=== PATIENT | female | born 1940 | race Caucasian/White ===

== ENCOUNTER → 2024-03-01 08:01 | Outpatient (REF) | payer MEDICARE, SELFPAY ==
[2024-03-01 09:14] LABS: % Basophils 1.5 % (0-2); % Eosinophils 1.8 % (0-6); % Lymphocytes 44.5 % (20.5-51.1); % Neutrophils 42.2 % (42.2-75.2); Absolute Basophils 0.1 10^3/uL (0-0.2); Absolute Eosinophils 0.1 10^3/uL (0-0.7); Absolute Lymphocytes 1.5 10^3/uL (1.2-3.4); Absolute Monocytes 0.3 10^3/uL (0.1-0.6); Absolute Neutrophils 1.4 10^3/uL (1.4-6.5); Hematocrit 40.2 % (37.0-47.0); Mean Corp Hgb Conc. 32.3 g/dL (33.0-37.0); Mean Corpuscular Hgb 31.3 pg (27.0-31.0); Mean Corpuscular Volume 96.6 fL (81.0-99.0); Mean Platelet Volume 9.7 fL (7.4-10.4); Nucleated Red Blood Cells % 0 %; Platelet Count 212 10^3/uL (130-400); Red Blood Cell Count 4.16 10^6/uL (4.20-5.40); Red Cell Dist. Width 12.8 % (11.5-14.5); White Blood Cell Count 3.3 10^3/uL (4.8-10.8)
[2024-03-01 09:52] LABS: ALT (SGPT) 14 U/L (0-35); AST (SGOT) 30 U/L (14-36); Albumin 4.7 g/dl (3.5-5.0); Alkaline Phosphatase 68 U/L (38-126); Blood Urea Nitrogen 14 mg/dl (7-17); Calcium 9.7 mg/dl (8.4-10.2); Carbon Dioxide 27 mmol/L (22-30); Chloride 103 mmol/L (98-107); Glucose 91 mg/dl (70-99); Potassium 5.4 mmol/L (3.5-5.1); Sodium 138 mmol/L (135-145); Total Bilirubin 0.6 mg/dl (0.2-1.3); Total Cholesterol 223 mg/dl (50-199); Total Protein 7.5 g/dl (6.3-8.2); Triglyceride 67 mg/dl (10-149); Very Low Density Lipoprotein 13 mg/dl (0-30); eGFR > 60.00
[2024-03-01 10:23] LABS: HDL Cholesterol 132 mg/dl; LDL Cholesterol, Calculated 78 mg/dl
== END ==
LOC: REG 08:01
PROVIDERS: ATTENDING PHYSICIAN Family Medicine
DX: E78.2 Mixed hyperlipidemia (principal); D72.819 Decreased white blood cell count, unspecified
CPT/HCPCS: 36415; 80053; 80061; 85025

== ENCOUNTER → 2024-07-16 10:09 | Outpatient (REF) | payer MEDICARE, SELFPAY | LOC: RAD 10:09 | PROVIDERS: ATTENDING PHYSICIAN Family Medicine | DX: M25.561 Pain in right knee (principal) | CPT/HCPCS: 73564; 73565 ==

== ENCOUNTER → 2024-08-05 13:01 | Outpatient (REF) | payer MEDICARE, SELFPAY | LOC: RAD 13:01 | PROVIDERS: ATTENDING PHYSICIAN Nurse Practitioner Adult Health; FAMILY PHYSICIAN Family Medicine | DX: M54.6 Pain in thoracic spine (principal); R07.81 Pleurodynia | CPT/HCPCS: 71111 ==

== ENCOUNTER → 2024-08-06 16:36 | Outpatient (REF) | payer MEDICARE, SELFPAY | LOC: RAD 16:36 | PROVIDERS: ATTENDING PHYSICIAN Family Medicine | DX: M79.89 Other specified soft tissue disorders (principal) | CPT/HCPCS: 93971 ==

== ENCOUNTER → 2024-08-13 09:35 | Outpatient (REF) | payer MEDICARE, SELFPAY | LOC: RAD 09:35 | PROVIDERS: ATTENDING PHYSICIAN Nurse Practitioner Adult Health | DX: M54.6 Pain in thoracic spine (principal) | CPT/HCPCS: 72072 ==

== ENCOUNTER → 2024-08-18 18:39 | Outpatient (REF) | payer MEDICARE, SELFPAY | LOC: PAVMRI 18:39 | PROVIDERS: ATTENDING PHYSICIAN Nurse Practitioner Adult Health; FAMILY PHYSICIAN Family Medicine | DX: M54.6 Pain in thoracic spine (principal); R07.81 Pleurodynia | CPT/HCPCS: 72146 ==

== ENCOUNTER 2024-08-27 13:08 | Emergency (ER) | payer MEDICARE, SELFPAY ==
[2024-08-27 13:14] VITALS: BP 158/87
[2024-08-27] MEDS: TORADOL 30 MG IM (14:15)
[2024-08-27] MEDS: TYLENOL 1000 MG PO (14:15)
[2024-08-27] MEDS: ROXICODONE 5 MG PO (14:50)
[2024-08-27] MEDS: LIDOCAINE 4% PATCH 1 PATCH TOPICAL (15:32)
[2024-08-27 15:34] VITALS: BP 134/76
--- NOTE | 2024-08-27 16:46 | ED.GENMED ---
History of Present Illness
General
Chief Complaint: Back Pain
Source: patient and family (Daughter)
Exam Limitations: none
Time Seen by Provider: 08/27/24 14:00
Nursing documentation reviewed up to this point in time: agreed with
History of Present Illness
History of Present Illness:
84-year-old female with past medical history of osteoporosis, hyperlipidemia who presents to the ER with her daughter for evaluation of back pain. Patient has mid to low back pain that has been ongoing for the past month or so secondary to
compression fracture which was diagnosed on MRI 2 weeks ago. Patient is scheduled to follow-up with orthopedics next week. She has been managing her pain with Tylenol but she feels that pain is poorly controlled especially when she is trying to
sit forward or when she is lying flat in bed at night and so she came to the emergency room for treatment. She denies any weakness or numbness in the legs. She denies any saddle anesthesia. She denies any bowel or bladder incontinence. She
denies any recent falls or trauma but she thinks she may have sustained the initial injury bending over to pick something up.
Review of Systems
Review of Systems
All Other Systems: ROS reviewed and negative except as documented in HPI and ROS
Constitutional: Denies fever
: Denies incontinence
Musculoskeletal: Reports back pain; Denies neck pain
Neurological: Denies weakness or numbness
Phy Exam
Physical Exam
Physical Exam:
General: Awake, alert, oriented x3; appears uncomfortable
Head: Normocephalic, atraumatic
Eyes: Conjunctiva normal
Throat: Airway intact
Neck: Trachea midline, no cervical spine tenderness
Back: She has midline tenderness lower thoracic region
Lungs: Breathing comfortably no distress
Heart: Regular rate
Abd: Soft, non distended, nontender
Neuro: Cranial nerves grossly intact, motor and sensory function intact, ambulatory in the emergency room with no ataxia
Extremities: Warm and well-perfused
Scores
Heart Failure Risk
Heart Failure Risk Score: Not Applicable
Heart Score for Chest Pain Patients
STEMI patient?: Not applicable
Withdrawal Assessment of Alcohol
Withdrawal Assessment Completed?: Not applicable
Course
Orders/Labs/Results
Orders:
Orders
08/27/24 14:06
Acetaminophen [Tylenol] 1,000 mg PO NOW STA
Ketorolac [Toradol] 30 mg IM NOW STA
08/27/24 14:45
Oxycodone [Roxicodone] 5 mg PO NOW STA
08/27/24 15:15
Lidocaine [Lidocaine 4% Patch] 1 patch TOPICAL ONCE ONE
Apply Lidocaine patch(s) to:: back
Vital Signs
Initial and Last Documented VS:
Initial Vital Signs
Temp Pulse Resp BP Pulse Ox
36.6 C 71 18 158/87 99
08/27/24 13:14 08/27/24 13:14 08/27/24 13:14 08/27/24 13:14 08/27/24 13:14
Last Documented Vital Signs
Temp Pulse Resp BP Pulse Ox
36.6 C 72 20 134/76 99
08/27/24 13:14 08/27/24 15:34 08/27/24 15:34 08/27/24 15:34 08/27/24 15:34
MDM/Problems Addressed
Differential Diagnosis Includes:
Vertebral compression fracture
MDM/Problems Addressed:
84-year-old female presents with uncontrolled pain from vertebral compression fracture that she has been dealing with for the past few weeks. Has been trying to manage with Tylenol but this is not adequate and she is having trouble sleeping. She
has no red flag symptoms. Reviewed MRI from 08/13/24:
IMPRESSION: Old compression deformity of L1.
Compression deformity of the T9 vertebral body, with marrow signal abnormality compatible with acute to subacute timeframe. If there are persistent clinical symptoms, consideration for consultation for vertebroplasty.
No significant compression of the thoracic spinal cord.
Normal signal intensity of the cervical and thoracic spinal cord.
See above narrative for description of degenerative changes. There is also a multi curvature scoliosis.
Tenderness on exam today does correlate with findings on MRI. No indication for repeat imaging at this point in time, this is mostly a pain control issue. Will treat symptomatically and reassess.
Patient treated here with multimodal pain control and pain significantly improved. Patient often walking around the ER. Will prescribe pain control regimen; we will give a short course of opiates, will also prescribe bowel regimen to prevent
constipation. She has planned follow-up with orthopedics and I advised her that if she needs long-term pain control she can follow[facility]. She feels comfortable with this plan. All questions answered.
*Radiology
Radiology exam reviewed: radiology read reviewed (Reviewed report from prior MRI)
*Pulse Oximetry
Patient hypoxic: no
*Critical Care Note
Total Time (30-74mins, 75-104mins- exclusive of procedures): Not Applicable
Data Reviewed
Source: patient
ED Attending Note
-
Portions of this chart may have been created with voice recognition software.� Occasional wrong word or��sound alike� substitutions may have occurred due to the inherent limitations of voice recognition software.
Discharge Plan
Departure
Patient Disposition: Home (Routine Discharge)
Date of Disposition: 08/27/24
Time of Disposition: 15:21
Patient with high blood pressure during this ER visit?: Yes
Discharge Problem:
Back pain, Vertebral compression fracture
Instructions: Vertebral Compression Fracture ED
Prescriptions:
New
oxycodone 5 mg tablet
5 mg PO Q8H PRN (Reason: Pain) Qty: 15 0RF
ibuprofen 600 mg tablet
600 mg PO Q6H PRN (Reason: Pain) Qty: 30 0RF
lidocaine 5 % adhesive patch,medicated
1 patch topical Q12H Qty: 30 0RF
docusate sodium [Colace] 100 mg capsule
100 mg PO DAILY Qty: 30 0RF
polyethylene glycol 3350 [Miralax] 17 gram/dose powder
4 g PO DAILY Qty: 119 0RF
Referrals:
Job Prakash MD [Active] - As needed (As needed for further evaluation and treatment of your back pain)
Estephanie Nova MD [Family Provider] - Call in 1-3 days for appt
Activity Restrictions/Additional Instructions:
You were seen in the emergency room for back pain and you were given pain medication to help control your symptoms. Your symptoms are related to a compression fracture in your back. You should follow-up with the orthopedist as scheduled and if you
need further assessment or treatment for your compression fracture you can also call and schedule an appointment with Dr. Prakash.
You can take the following medications for your pain to help control your symptoms:
-Acetaminophen (Tylenol) 1,000 mg (2 extra strength tablets) every 6 hours as needed
-Ibuprofen (Motrin/Aleve) 600 mg (3 regular strength tablets) every 6 hours as needed
-Lidocaine 5% patches apply topically every 12 hours as needed
-Oxycodone 5 mg (1 tab) every 8 hours as needed; for very severe pain, you can take 10 mg (2 tabs)
Thank you for visiting the Emergency Department at [facility].
1. Please schedule a follow up appointment as directed. Call first thing tomorrow morning to make an appointment.
2. If indicated, please take your medications as instructed and indicated on discharge paperwork.
3. If any of your symptoms do not improve, or persist, or become more severe within 6-12 hours, please return to the emergency department for further care.
4. Please return to the emergency department if you develop a headache, neck pain/stiffness, fever greater than 100.4F, chest pain, shortness of breath, persistent nausea, vomiting, slurred speech, difficulty walking, numbness/tingling, weakness,
signs of infection or any other symptoms that are worrisome to you.
Please call [phone] if you have any questions.
Interventions
Interventions:
*Risk Screen - Suicide Last Done: 08/27/24 13:14
*General Assessment Last Done: 08/27/24 13:14
*Neglect/Abuse Screening Last Done: 08/27/24 13:14
*Nursing Disposition Last Done: 08/27/24 16:04
ED-Musculoskeletal Assessment Last Done: 08/27/24 16:04
Discharge Date and Time
Discharge Date/Time: 08/27/24 16:06
Print Language: UKRAINIAN
== END 2024-08-27 16:06 | disposition home or self-care (01) ==
LOC: EMR 13:08
PROVIDERS: EMERGENCY PHYSICIAN Emergency Medicine; FAMILY PHYSICIAN Family Medicine
DX: M48.54XA Collapsed vertebra, not elsewhere classified, thoracic region, initial encounter for fracture (principal); E78.5 Hyperlipidemia, unspecified
CPT/HCPCS: 96372; 99284

== ENCOUNTER → 2024-09-22 08:09 | Outpatient (REF) | payer MEDICARE, SELFPAY ==
[2024-09-22 10:03] LABS: % Basophils 1.4 % (0-2); % Immature Granulocytes 0.3 % (0-0.5); % Lymphocytes 35.2 % (20.5-51.1); % Monocytes 10.6 % (1.7-9.3); % Neutrophils 50.5 % (42.2-75.2); Absolute Basophils 0.1 10^3/uL (0-0.2); Absolute Eosinophils 0.1 10^3/uL (0-0.7); Absolute Lymphocytes 1.3 10^3/uL (1.2-3.4); Absolute Monocytes 0.4 10^3/uL (0.1-0.6); Absolute Neutrophils 1.8 10^3/uL (1.4-6.5); Hematocrit 38.6 % (37.0-47.0); Hemoglobin 12.9 g/dL (12.0-16.0); Mean Corp Hgb Conc. 33.4 g/dL (33.0-37.0); Mean Corpuscular Hgb 31.5 pg (27.0-31.0); Mean Corpuscular Volume 94.1 fL (81.0-99.0); Mean Platelet Volume 9.9 fL (7.4-10.4); Nucleated Red Blood Cells % 0 %; Platelet Count 278 10^3/uL (130-400); Red Cell Dist. Width 12.3 % (11.5-14.5); White Blood Cell Count 3.6 10^3/uL (4.8-10.8)
[2024-09-22 10:44] LABS: ALT (SGPT) 14 U/L (0-35); AST (SGOT) 28 U/L (14-36); Albumin 4.9 g/dl (3.5-5.0); Alkaline Phosphatase 132 U/L (38-126); Blood Urea Nitrogen 21 mg/dl (7-17); Calcium 10.6 mg/dl (8.4-10.2); Carbon Dioxide 26 mmol/L (22-30); Chloride 103 mmol/L (98-107); Glucose 82 mg/dl (70-99); HDL Cholesterol 104 mg/dl; LDL Cholesterol, Calculated 97 mg/dl; Potassium 4.8 mmol/L (3.5-5.1); Sodium 142 mmol/L (135-145); Total Bilirubin 0.7 mg/dl (0.2-1.3); Total Cholesterol 218 mg/dl (50-199); Total Protein 7.9 g/dl (6.3-8.2); Triglyceride 86 mg/dl (10-149); Very Low Density Lipoprotein 17 mg/dl (0-30); eGFR > 60.00
[2024-09-22 11:02] LABS: Vitamin D, 25-OH*** 55.4 ng/mL (30-80)
== END ==
LOC: REG 08:09
PROVIDERS: ATTENDING PHYSICIAN Internal Medicine; FAMILY PHYSICIAN Family Medicine
DX: D72.819 Decreased white blood cell count, unspecified (principal); E78.2 Mixed hyperlipidemia; M81.0 Age-related osteoporosis without current pathological fracture
CPT/HCPCS: 36415; 80053; 80061; 82306; 85025

== ENCOUNTER 2024-10-04 15:15 | Emergency (ER) | payer MEDICARE, SELFPAY ==
[2024-10-04 15:22] VITALS: BP 149/100
--- NOTE | 2024-10-04 15:24 | ED.GENMED ---
ED Provider Triage
<Lily Ellis, [employer] - Last Filed: 10/04/24 15:29>
-
Patient seen by provider in Triage?: Seen in Triage
Attestation: A medical screening examination has been initiated by a qualified medical provider. Based on the assessment performed at this time, it has been determined that an emergent medical condition may exist and the patient has been informed
that further medical evaluation and possible additional diagnostic testing may be needed.
HPI: 84-year-old female diagnosed earlier this month with fractured vertebrae, has been on oxycodone resulting in constipation, no BM in 2 weeks. Was taking Colace with no relief. Took Dulcolax 3 nights this past weel, took Mag Citrate 10 oz @ 12
noon with no results. Abdomen 'uncomfortable but not really pain.' Denies n/v.
No hx abdominal surgery.
GENERAL: Alert , in no apparent distress
EYE: No visual abnormalities.
ENT: No visible abnormalities.
LUNGS: No acute respiratory distress
NEUROLOGICAL: Alert and oriented
SKIN: Skin intact. No visible changes.
MUSCULOSKELETAL: Moving extremities normally
PSYCH: Normal and appropriate interaction.
This is a medical evaluation conducted in person to initiate diagnostic evaluation and provide initial therapeutics. Please see further documentation by the treating clinician.
History of Present Illness
<Lily Ellis, [employer] - Last Filed: 10/04/24 15:29>
General
Chief Complaint: Abdominal Symptoms
Time Seen by Provider: 10/04/24 16:34
<Naman Merrill, DO - Last Filed: 10/04/24 23:29>
General
Source: patient and spouse
Exam Limitations: none
Nursing documentation reviewed up to this point in time: agreed with
History of Present Illness
History of Present Illness:
84-year-old female presents emergency room complaining of constipation ongoing for the past 2 weeks. She was diagnosed with febrile fracture 2 weeks ago. She denies any abdominal pain. She has been taking oxycodone for the past 2 weeks. She took
mag citrate earlier today with no results.
Past History
<Naman Merrill, DO - Last Filed: 10/04/24 23:29>
Past History
ED Past Medical History: Other (Back pain)
ED Past Surgical History: Appendectomy
Social History
Tobacco: Non-smoker
Alcohol: None
Drug: None
Personal:
Living: with family
Review of Systems
<Naman Merrill, DO - Last Filed: 10/04/24 23:29>
Review of Systems
Allergies reviewed?: Yes
All Other Systems: Not applicable
Constitutional: Reports no symptoms
EENT: Reports no symptoms
Respiratory: Reports no symptoms
Cardiac: Reports no symptoms
ABD/GI: Reports constipated; Denies abdominal pain
: Reports no symptoms
Musculoskeletal: Reports no symptoms
Skin: Reports no symptoms
Neurological: Reports no symptoms
Endocrine: Reports no symptoms
Hematologic/Lymphatic: Reports no symptoms
Psychiatric: Reports no symptoms
Phy Exam
<Naman Merrill, DO - Last Filed: 10/04/24 23:29>
Physical Exam
Physical Exam:
Physical Exam
General: no apparent distress, not acutely ill
Neck: supple. no meningeal signs. normal posterior pharynx
Heart: s1/s2 regular rate and rhythm, no murmur. equal radial
pulses.
HEENT: Pupils equal round reactive to light, EOMI
Lungs: no acute respiratory distress. clear bilaterally
Abdomen: normal bowel sounds. not tender. no CVAT, rectal exam guaiac negative brown stool, no fecal impaction
Neuro: alert and oriented. no focal neurological deficits cranial nerves II through XII intact
Skin: no rash
Psychiatric: well kept. interactive and cooperative
Extremities: no edema. no calf tenderness. negative homans. good distal pulses
Course
<Lily Sheets Day, [employer]EC[employer]IVE - Last Filed: 10/04/24 15:29>
Orders/Labs/Results
Orders:
Orders
10/04/24 15:29
CR Obstruct Series W/pa Chest Urgent
Comment:
Reason For Exam: no BM 2 weeks
10/04/24 15:34
Complete Blood Count/With Diff Urgent
Comprehensive Metabolic Panel Urgent
Abnormal Lab Results
10/04/24
15:34
RBC 4.03 L 10^6/uL
(4.20-5.40)
MCHC 32.7 L g/dL
(33.0-37.0)
Absolute Lymphs (auto) 0.9 L 10^3/uL
(1.2-3.4)
Lymphocytes % 19.1 L %
(20.5-51.1)
Chloride 97 L mmol/L
(98-107)
BUN 19 H mg/dl
(7-17)
Glucose 115 H mg/dl
(70-99)
Calcium 10.6 H mg/dl
(8.4-10.2)
10/04/24 15:34
10/04/24 15:34
Vital Signs
Initial and Last Documented VS:
Initial Vital Signs
Temp Pulse Resp BP Pulse Ox
98.3 F 98 16 149/100 99
10/04/24 15:22 10/04/24 15:22 10/04/24 15:22 10/04/24 15:22 10/04/24 15:22
Last Documented Vital Signs
Temp Pulse Resp BP Pulse Ox
98.3 F 92 16 130/76 96
10/04/24 15:22 10/04/24 17:11 10/04/24 17:11 10/04/24 17:11 10/04/24 17:11
<Naman Merrill, DO - Last Filed: 10/04/24 23:29>
Orders/Labs/Results
Orders:
Orders
10/04/24 15:29
CR Obstruct Series W/pa Chest Urgent
Comment:
Reason For Exam: no BM 2 weeks
10/04/24 15:34
Complete Blood Count/With Diff Urgent
Comprehensive Metabolic Panel Urgent
Abnormal Lab Results
10/04/24
15:34
RBC 4.03 L 10^6/uL
(4.20-5.40)
MCHC 32.7 L g/dL
(33.0-37.0)
Absolute Lymphs (auto) 0.9 L 10^3/uL
(1.2-3.4)
Lymphocytes % 19.1 L %
(20.5-51.1)
Chloride 97 L mmol/L
(98-107)
BUN 19 H mg/dl
(7-17)
Glucose 115 H mg/dl
(70-99)
Calcium 10.6 H mg/dl
(8.4-10.2)
10/04/24 15:34
10/04/24 15:34
Vital Signs
Initial and Last Documented VS:
Initial Vital Signs
Temp Pulse Resp BP Pulse Ox
98.3 F 98 16 149/100 99
10/04/24 15:22 10/04/24 15:22 10/04/24 15:22 10/04/24 15:22 10/04/24 15:22
Last Documented Vital Signs
Temp Pulse Resp BP Pulse Ox
98.3 F 92 16 130/76 96
10/04/24 15:22 10/04/24 17:11 10/04/24 17:11 10/04/24 17:11 10/04/24 17:11
<Naman Merrill, DO - Last Filed: 10/04/24 23:29>
MDM/Problems Addressed
Differential Diagnosis Includes:
Bowel obstruction, fecal impaction
MDM/Problems Addressed:
84-year-old female with const, stemming from oxycodone. No obstruction seen. Will treat with lactulose. Follow-up primary care.
<Naman Merrill, - Last Filed: 10/04/24 23:29>
*Radiology
Radiology exam reviewed: radiology read reviewed (Abdominal x-ray shows constipation, no bowel)
*Pulse Oximetry
Patient hypoxic: no
*Critical Care Note
Total Time (30-74mins, 75-104mins- exclusive of procedures): Not Applicable
Data Reviewed
Further Testing Considered But Not Given:
CT scan not indicated
<Naman Merrill, - Last Filed: 10/04/24 23:29>
Patient Management
Social determinants of health affecting care: Living situation and Strong social support
Escalation/DeEscalation of care consider admission/obs:
Admit not indicated
ED Attending Note
<Lily Ellis [employer] EXECUTIVE - Last Filed: 10/04/24 15:29>
-
Portions of this chart may have been created with voice recognition software.� Occasional wrong word or��sound alike� substitutions may have occurred due to the inherent limitations of voice recognition software.
Discharge Plan
Departure
Patient Disposition: Home (Routine Discharge)
Date of Disposition: 10/04/24
Time of Disposition: 16:52
Patient with high blood pressure during this ER visit?: Yes
Condition: Good
Discharge Problem:
Acute constipation
Instructions: Constipation, Adult (DC), BLOOD PRESSURE
Prescriptions:
New
lactulose 20 gram packet
20 g PO BID Qty: 30 0RF
No Action
oxycodone 5 mg tablet
5 mg PO Q8H PRN (Reason: Pain) Qty: 15 0RF
ibuprofen 600 mg tablet
600 mg PO Q6H PRN (Reason: Pain) Qty: 30 0RF
lidocaine 5 % adhesive patch,medicated
1 patch topical Q12H Qty: 30 0RF
docusate sodium [Colace] 100 mg capsule
100 mg PO DAILY Qty: 30 0RF
polyethylene glycol 3350 [Miralax] 17 gram/dose powder
4 g PO DAILY Qty: 119 0RF
Activity Restrictions/Additional Instructions:
Follow-up with primary care in 3 to 5 days. Return for any concerns.
Interventions
Interventions:
*Risk Screen - Suicide Last Done: 10/04/24 15:22
*General Assessment Last Done: 10/04/24 17:11
*Neglect/Abuse Screening Last Done: 10/04/24 15:22
ED- Fall Risk Assessment Last Done: 10/04/24 17:11
*ED COVID-19 Vaccine History Last Done: 10/04/24 15:24
*Nursing Disposition Last Done: 10/04/24 17:18
DF-[id number] Assessment Last Done: 10/04/24 17:11
Discharge Date and Time
Discharge Date/Time: 10/04/24 17:20
Print Language: LAO
[2024-10-04 15:44] LABS: % Basophils 0.6 % (0-2); % Eosinophils 0.2 % (0-6); % Lymphocytes 19.1 % (20.5-51.1); % Monocytes 7.4 % (1.7-9.3); % Neutrophils 72.7 % (42.2-75.2); Absolute Lymphocytes 0.9 10^3/uL (1.2-3.4); Absolute Monocytes 0.4 10^3/uL (0.1-0.6); Absolute Neutrophils 3.5 10^3/uL (1.4-6.5); Hematocrit 38.2 % (37.0-47.0); Hemoglobin 12.5 g/dL (12.0-16.0); Mean Corp Hgb Conc. 32.7 g/dL (33.0-37.0); Mean Corpuscular Volume 94.8 fL (81.0-99.0); Mean Platelet Volume 8.8 fL (7.4-10.4); Nucleated Red Blood Cells % 0 %; Platelet Count 305 10^3/uL (130-400); Red Blood Cell Count 4.03 10^6/uL (4.20-5.40); Red Cell Dist. Width 12.2 % (11.5-14.5); White Blood Cell Count 4.8 10^3/uL (4.8-10.8)
[2024-10-04 15:59] LABS: ALT (SGPT) 13 U/L (0-35); AST (SGOT) 25 U/L (14-36); Albumin 4.9 g/dl (3.5-5.0); Alkaline Phosphatase 125 U/L (38-126); Blood Urea Nitrogen 19 mg/dl (7-17); Calcium 10.6 mg/dl (8.4-10.2); Carbon Dioxide 26 mmol/L (22-30); Chloride 97 mmol/L (98-107); Glucose 115 mg/dl (70-99); Potassium 4.9 mmol/L (3.5-5.1); Sodium 138 mmol/L (135-145); Total Bilirubin 0.5 mg/dl (0.2-1.3); Total Protein 7.9 g/dl (6.3-8.2); eGFR > 60.00
--- NOTE | 2024-10-04 16:43 | EDRN ---
Dr. Merrill in room w/pt at this time.
--- NOTE | 2024-10-04 17:04 | EDRN ---
Dr. Merrill in room w/ pt at this time.
[2024-10-04 17:11] VITALS: BP 130/76; BMI 21.7
== END 2024-10-04 17:20 | disposition home or self-care (01) ==
LOC: EMR 15:15
PROVIDERS: Registered Nurse; EMERGENCY PHYSICIAN Emergency Medicine
DX: K59.09 Other constipation (principal); R03.0 Elevated blood-pressure reading, without diagnosis of hypertension
CPT/HCPCS: 99284; 74022; 80053; 85025

== ENCOUNTER → 2024-10-22 08:45 | Outpatient (REF) | payer MEDICARE, SELFPAY ==
[2024-10-22 10:48] LABS: ALT (SGPT) 13 U/L (0-35); AST (SGOT) 24 U/L (14-36); Albumin 4.4 g/dl (3.5-5.0); Alkaline Phosphatase 135 U/L (38-126); Direct Bilirubin 0.2 mg/dl (0.0-0.4); Total Bilirubin 0.7 mg/dl (0.2-1.3); Total Protein 7.1 g/dl (6.3-8.2)
[2024-10-23 08:59] LABS: Intact PTH 39.3 pg/ml (13.6-85.8)
== END ==
LOC: REG 08:45
PROVIDERS: ATTENDING PHYSICIAN Family Medicine
DX: R74.8 Abnormal levels of other serum enzymes (principal)
CPT/HCPCS: 36415; 80076; 83970

== ENCOUNTER → 2024-10-26 18:16 | Outpatient (REF) | payer MEDICARE, SELFPAY | LOC: WDC 18:16 | PROVIDERS: ATTENDING PHYSICIAN Family Medicine | DX: Z12.31 Encounter for screening mammogram for malignant neoplasm of breast (principal) | CPT/HCPCS: 77063; 77067 ==

== ENCOUNTER → 2025-01-12 10:16 | Outpatient (REF) | payer MEDICARE, OTHER, SELFPAY | LOC: RAD 10:16 | PROVIDERS: ATTENDING PHYSICIAN Internal Medicine; FAMILY PHYSICIAN Family Medicine | DX: Z13.820 Encounter for screening for osteoporosis (principal); M81.0 Age-related osteoporosis without current pathological fracture | CPT/HCPCS: 77080; 77081 ==

== ENCOUNTER → 2025-01-29 08:46 | Outpatient (REF) | payer MEDICARE, OTHER, SELFPAY ==
[2025-01-29 09:48] LABS: % Basophils 1.3 % (0-2); % Eosinophils 1.6 % (0-6); % Immature Granulocytes 0.3 % (0-0.5); % Lymphocytes 42.6 % (20.5-51.1); % Monocytes 10.6 % (1.7-9.3); % Neutrophils 43.6 % (42.2-75.2); Absolute Eosinophils 0.1 10^3/uL (0-0.7); Absolute Lymphocytes 1.3 10^3/uL (1.2-3.4); Absolute Monocytes 0.3 10^3/uL (0.1-0.6); Absolute Neutrophils 1.4 10^3/uL (1.4-6.5); Hematocrit 38.8 % (37.0-47.0); Hemoglobin 12.3 g/dL (12.0-16.0); Mean Corp Hgb Conc. 31.7 g/dL (33.0-37.0); Mean Corpuscular Hgb 30.6 pg (27.0-31.0); Mean Corpuscular Volume 96.5 fL (81.0-99.0); Mean Platelet Volume 9.5 fL (7.4-10.4); Nucleated Red Blood Cells % 0 %; Platelet Count 216 10^3/uL (130-400); Red Blood Cell Count 4.02 10^6/uL (4.20-5.40); White Blood Cell Count 3.1 10^3/uL (4.8-10.8)
[2025-01-29 10:31] LABS: ALT (SGPT) 13 U/L (0-35); AST (SGOT) 27 U/L (14-36); Albumin 4.6 g/dl (3.5-5.0); Alkaline Phosphatase 114 U/L (38-126); Blood Urea Nitrogen 16 mg/dl (7-17); Calcium 9.6 mg/dl (8.4-10.2); Carbon Dioxide 26 mmol/L (22-30); Chloride 101 mmol/L (98-107); Glucose 88 mg/dl (70-99); HDL Cholesterol 108 mg/dl; LDL Cholesterol, Calculated 69 mg/dl; Potassium 4.8 mmol/L (3.5-5.1); Sodium 137 mmol/L (135-145); Total Bilirubin 0.8 mg/dl (0.2-1.3); Total Cholesterol 191 mg/dl (50-199); Total Protein 7.2 g/dl (6.3-8.2); Triglyceride 70 mg/dl (10-149); Very Low Density Lipoprotein 14 mg/dl (0-30); eGFR > 60.00
== END ==
LOC: REG 08:46
PROVIDERS: ATTENDING PHYSICIAN Family Medicine
DX: E78.2 Mixed hyperlipidemia (principal); D72.819 Decreased white blood cell count, unspecified
CPT/HCPCS: 36415; 80053; 80061; 85025

== ENCOUNTER → 2025-06-03 10:20 | Outpatient (REF) | payer MEDICARE, OTHER, SELFPAY ==
[2025-06-03 11:54] LABS: ALT (SGPT) 15 U/L (0-35); AST (SGOT) 27 U/L (14-36); Albumin 4.8 g/dl (3.5-5.0); Alkaline Phosphatase 123 U/L (38-126); Blood Urea Nitrogen 13 mg/dl (7-17); Calcium 8.9 mg/dl (8.4-10.2); Carbon Dioxide 27 mmol/L (22-30); Chloride 104 mmol/L (98-107); Glucose 87 mg/dl (70-99); Potassium 4.9 mmol/L (3.5-5.1); Sodium 139 mmol/L (135-145); Total Protein 7.7 g/dl (6.3-8.2); eGFR > 60.00
[2025-06-03 12:09] LABS: Vitamin D, 25-OH*** 59.1 ng/mL (30-80)
== END ==
LOC: REG 10:20
PROVIDERS: ATTENDING PHYSICIAN Internal Medicine; FAMILY PHYSICIAN Family Medicine
DX: M79.669 Pain in unspecified lower leg (principal); M81.0 Age-related osteoporosis without current pathological fracture
CPT/HCPCS: 36415; 73552; 80053; 82306

== ENCOUNTER → 2025-09-27 07:44 | Outpatient (REF) | payer MEDICARE, OTHER, SELFPAY ==
[2025-09-27 08:43] LABS: Hematocrit 39.6 % (37.0-47.0); Hemoglobin 12.7 g/dL (12.0-16.0); Mean Corp Hgb Conc. 32.1 g/dL (33.0-37.0); Mean Corpuscular Volume 93.4 fL (81.0-99.0); Nucleated Red Blood Cells % 0 %; Platelet Count 208 10^3/uL (130-400); Red Cell Dist. Width 12.8 % (11.5-14.5)
[2025-09-27 09:23] LABS: ALT (SGPT) 15 U/L (0-35); AST (SGOT) 27 U/L (14-36); Albumin 4.6 g/dl (3.5-5.0); Alkaline Phosphatase 113 U/L (38-126); Blood Urea Nitrogen 13 mg/dl (7-17); Calcium 9.2 mg/dl (8.4-10.2); Carbon Dioxide 29 mmol/L (22-30); Chloride 102 mmol/L (98-107); Glucose 89 mg/dl (70-99); HDL Cholesterol 98 mg/dl; LDL Cholesterol, Calculated 93 mg/dl; Potassium 4.6 mmol/L (3.5-5.1); Sodium 135 mmol/L (135-145); Total Protein 6.9 g/dl (6.3-8.2); Very Low Density Lipoprotein 16 mg/dl (0-30); eGFR > 60.00
== END ==
LOC: REG 07:44
PROVIDERS: ATTENDING PHYSICIAN Family Medicine
DX: M80.00XD Age-related osteoporosis with current pathological fracture, unspecified site, subsequent encounter for fracture with routine healing (principal); D72.819 Decreased white blood cell count, unspecified; E78.2 Mixed hyperlipidemia
CPT/HCPCS: 36415; 80053; 80061; 85025